=== PATIENT | male | born 2000 | race Caucasian/White ===

== ENCOUNTER 2021-07-03 06:51 | Day surgery (SDC) | payer OTHER ==
[~2021-07-03] VITALS: Ht 182.9 cm; Wt 71.0 kg
[~2021-07-03 06:51] MED LIST: HYDROmorphone 2 MG/ML VIAL IVP PRN; IV RINGERS,LACTATED 1000ML 1,000 ML IV SCH; PROCHLORPERAZINE 10 MG/2 ML VIAL. IVP PRN; ceFAZolin SODIUM IV Push 1 GM VIAL. IVP PRN; fentaNYL PF VIAL 100 MCG/2 ML VIAL IVP PRN
[2021-07-03 07:12] VITALS: BP 152/71
[2021-07-03] MEDS ORDERED: ACETAMINOPHEN 500 MG TABLET PO ONE (07:15)
--- NOTE | 2021-07-03 07:41 | PDOC1 ---
History and Physical Date of Admission Date of Admission DATE: 07/03/21 TIME: 07:39 Identification/Chief Complaint Chief Complaint Left groin pain Source Source: Patient History of Present Illness History of Present Illness 21-year-old male with history of left inguinal hernia repair laparoscopically in 2019 subsequently after PT training for the noticed having recurrent pain in his left groin as well as a bulge that is been getting worse Past Medical History Cardiovascular: No pertinent hx Pulmonary: No pertinent hx GI: No pertinent hx Heme/Onc: No pertinent hx Hepatobiliary: No pertinent hx Psych: No pertinent hx Rheumatologic: No pertinent hx, Fibromyalgia ENT: No pertinent hx Renal/: No pertinent hx Endocrine: No pertinent hx Dermatology: No pertinent hx Past Surgical History Past Surgical History: Hernia Repair Family History Family History: No Significant Social History Smoke: No ALCOHOL: none Drugs: None Current Medications Current Medications Current Medications Fentanyl Citrate (Fentanyl 2ml Vial) 25 mcg PRN Q5MIN PRN IVP MILD PAIN 1-3; Start 07/03/21 at 06:00; Stop 07/04/21 at 05:59 Fentanyl Citrate (Fentanyl 2ml Vial) 50 mcg PRN Q5MIN PRN IVP MODERATE PAIN 4- 6; Start 07/03/21 at 06:00; Stop 07/04/21 at 05:59 Morphine Sulfate (Morphine Sulfate) 1 mg PRN Q10MIN PRN IVP SEVERE PAIN 7-10; Start 07/03/21 at 06:00; Stop 07/04/21 at 05:59 Ringer's Solution 1,000 ml @ 30 mls/hr Q24H IV Last administered on 07/03/21at 07:18; Start 07/03/21 at 06:00; Stop 07/03/21 at 17:59 Hydromorphone HCl (Dilaudid) 0.5 mg PRN Q10MIN PRN IVP SEVERE PAIN 7-10, 2nd CHOICE; Start 07/03/21 at 06:00; Stop 07/04/21 at 05:59 Prochlorperazine Edisylate (Compazine) 5 mg PACU PRN PRN IVP NAUSEA, MRX1; Start 07/03/21 at 06:00; Stop 07/04/21 at 05:59 Cefazolin Sodium (Ancef) 1 gm 1X PREOP PRN IVP PRIOR TO PROCEDURE; Start 07/02/21 at 18:15 Acetaminophen (Tylenol) 1,000 mg 1X ONCE PO Last administered on 07/03/21at 07:21; Start 07/03/21 at 07:15; Stop 07/03/21 at 07:16; Status DC Active Scripts Active Reported No Known Medications Prior To Admisstion (Info) Each 1 Each DAILY Allergies Allergies: Coded Allergies: No Known Drug Allergies (Unverified , 07/03/21) ROS Genitourinary: YES Pain (Left groin) Physical Exam General: Alert, Oriented X3, Cooperative, No acute distress HEENT: Atraumatic, EOMI Lungs: Clear to auscultation, Normal air movement Heart: RRR, no murmurs Abdomen: Normal bowel sounds, Soft, No tenderness Male Genitals Exam: hernia (Left inguinal) Rectal Exam: not examined Extremities: No edema Skin: No significant lesion Neuro: Normal speech Psych/Mental Status: Mental status NL Vitals Vitals Vital Signs Date Time Temp Pulse Resp B/P (MAP) Pulse Ox O2 Delivery O2 Flow Rate FiO2 07/03/21 07:12 97.9 106 16 99 97.9 07/03/21 07:09 152/71 Room Air VTE Prophylaxis Ordered VTE Prophylaxis Devices: Yes VTE Pharmacological Prophylaxi: Contraindicated Assessment/Plan Assessment/Plan Recurrent left inguinal hernia plan robotic assisted laparoscopic repair Justifications for Admission Other Justification NILES SALDANA MD Jul 03, 2021 07:41
[2021-07-03] MEDS ORDERED: PROPOFOL 10 MG/ML (20ML) VIAL. IV ONE (07:42)
[2021-07-03] MEDS ORDERED: DEXAMETHASONE SOD PHOS 4 MG/ML VIAL ONE ×2 (07:43→08:23)
[2021-07-03] MEDS ORDERED: ONDANSETRON PF 4 MG/2 ML VIAL. ONE (07:43)
[2021-07-03] MEDS ORDERED: ROCURONIUM 50 MG/5 ML VIAL. ONE (07:43)
[2021-07-03] MEDS ORDERED: BUPIVACAINE-EPI 0.25%-1:200000 MPF 30 ML VIAL. ONE (07:44)
[2021-07-03] MEDS ORDERED: MINERAL OIL for SURGERY 10 ML VIAL. MC ONE (07:44)
[2021-07-03] MEDS ORDERED: fentaNYL PF VIAL 100 MCG/2 ML VIAL ONE ×3 (07:58→10:50)
[2021-07-03] MEDS ORDERED: MIDAZOLAM HCL/PF 2 MG/2 ML VIAL. ONE (07:58)
[2021-07-03] MEDS ORDERED: LIDOCAINE 2% PF 5 ML VIAL. ONE (07:59)
[2021-07-03] MEDS ORDERED: FAMOTIDINE 20 MG/2 ML VIAL ONE (08:55)
[2021-07-03] MEDS ORDERED: SEVOFLURANE 61 TO 120 MINUTES. IH ONE (09:37)
[2021-07-03] MEDS ORDERED: GLYCOPYRROLATE 1 MG/5 ML VIAL. ONE (09:37)
[2021-07-03] MEDS ORDERED: NEOSTIGMINE METHYLSULFATE 5 MG/5 ML SYRINGE. ONE (09:37)
[2021-07-03] MEDS ORDERED: KETOROLAC 30 MG/ML VIAL. ONE (09:37)
--- NOTE | 2021-07-03 09:45 | PDOC4 ---
Operative Note Operative Note Date: July 032020 at 941 Preoperative diagnosis: Recurrent left inguinal hernia Postoperative diagnosis: Same in addition hydrocele Procedure: Robotic assisted laparoscopic left inguinal hernia repair with mesh excision of hydrocele Surgeon: Tutu Specimen: Hydrocele sac Dictation: Patient is 21-year-old male with complaints of left groin pain after previous left inguinal hernia repair. Procedure of robotic assisted laparoscopic left inguinal hernia repair with mesh was explained to the patient detail risk benefits were also discussed including bleeding infection injury to intra-abdominal contents possible necessitating further open operations alternatives to this procedure also discussed with patient who seemed to understand and gave a verbal written consent to have the procedure performed. Patient was taken to the operating room placed in the supine position general anesthesia was initiated once patient was sleeping intubated is placed in low lithotomy position and his abdomen was prepped and draped usual sterile fashion with ChloraPrep. An area just above the umbilicus was injected with quarter percent Marcaine with epinephrine incision was made 11 blade scalpel and a varies needle was placed within the abdomen creating pneumoperitoneum once this complete 8 mm da Lawrence port was placed the camera was placed within the abdomen which was inspected was noted that the the left side mesh was intact there was a small defect inferior to the mesh. 8 mm da Lawrence port was placed in the right midabdomen and an 8 mm da Lawrence port was placed in the left midabdomen. Surgeon went to the robotic console using a grasper and Endo Kate scissors the peritoneum on the left side was incised there is some difficulty getting off the previous mesh was also noted there is a tubular structure extending into the hernia this was grasped dissected of its ear adherent tissues around and opened there was quite a bit of serous fluid expressed appeared to be a hydrocele sac this was excised and removed for specimen. Small hernia defect was covered with ventral light ST mesh this was sewn into place with 3 interrupted 2-0 Vicryl sutures. The peritoneum was then closed over the area with a running 2 OV lock absorbable suture. Pelvis was irrigated suctioned dry hemostasis deemed be appropriate that point the pneumoperitoneum was reduced the robot was undocked from all port sites all ports were removed and all port sites were closed with 4 subcuticular Monocryl Mastisol Steri-Strips and island dressings were applied. Patient was awakened and extubated operating room taken recovery in stable cond ition all sponge instrument needle counts listed as correct estimated blood loss 10 mL. NILES SALDANA MD Jul 03, 2021 09:45
[2021-07-03] MEDS ORDERED: OXYC-325 PO (09:47)
--- NOTE | 2021-07-03 09:49 | DISCH ---
DISCHARGE INSTRUCTIONS Condition on Discharge Condition on Discharge: Stable Activity After Discharge Activity Instructions for Disc: Avoid exertion Other activity instructions: No lifting more than 20 pounds for 2 weeks Diet after Discharge Diet after Discharge: Regular Contacting the DRKinga after DC Call your doctor for: If your condition worsens Follow-Up Follow up with: Dr. Saldana in 2 weeks NILES SALDANA MD Jul 03, 2021 09:49
[2021-07-03] MEDS ORDERED: MORPHINE SULFATE 2 MG/ML INJ. ONE (10:26)
[2021-07-03] MEDS: MORPHINE SULFATE 2 MG/ML INJ. IVP PRN ×2 (10:29→10:42)
[2021-07-03] MEDS ORDERED: oxyCODONE/APAP 5/325 1 TAB TABLET PO ONE (10:30)
[2021-07-03] MEDS: fentaNYL PF VIAL 100 MCG/2 ML VIAL IVP PRN ×2 (10:54→11:09)
[2021-07-03 11:20] VITALS: BP 125/64
== END 2021-07-03 11:45 | disposition home or self-care (01) ==
LOC: SURG 06:51
PROVIDERS: ATTEND Surgery
DX: K40.91 Unilateral inguinal hernia, without obstruction or gangrene, recurrent (principal); N43.2 Other hydrocele; Z72.89 Other problems related to lifestyle; Z79.899 Other long term (current) drug therapy; Z98.890 Other specified postprocedural states
CPT/HCPCS: 49651; 55040; A4364; A4930; A6219; C1781; J0690; J0780; J1100; J1885; J2250; J2270; J2405; J2704; J2710; J3010; J3490; S2900; A4657